=== PATIENT | male | born 1940 | race African-American/Black ===

== ENCOUNTER → 2018-03-14 | Outpatient (CLI) | payer MEDICARE ==
--- NOTE | 2018-03-14 09:02 | RADIOLOGY REPORT (SQ) ---
EXAM DESCRIPTION: TIBIA FIBULA LEFT COMPLETED DATE/TIME: 03/14/2018 8:49 am REASON FOR STUDY: NON-PRESSURE CHRONIC ULCER OF LEFT CALF W FAT LAYER EXPOSED (L97.222) L97.222 NON -PRESSURE CHRONIC ULCER OF LEFT CALF W FAT LAYER COMPARISON: None. NUMBER OF VIEWS: Two views. TECHNIQUE: Two radiographic images acquired of the left tibia and fibula to include the knee and ank le in at least one projection. LIMITATIONS: None. FINDINGS: MINERALIZATION: Normal. BONES: No acute fracture or dislocation. Degenerative changes at the left knee. Chondrocalcinosis i n the medial and lateral compartments, more so laterally. Calcaneal spurs. SOFT TISSUES: Soft tissue swelling/ injury medial aspect of the left ankle. This finding likely cor relates with the patient's known ulcer. Soft tissue vascular calcifications and calcified phlebolith s, more so in the medial soft tissues of the mid distal left lower extremity. Surgical metallic clip s in the posteromedial soft tissues of the knee. OTHER: No other significant finding. IMPRESSION: 1. No acute osseous findings. 2. Soft tissue swelling/injury medial left ankle, likely correlates with patient's known ulcer. 3. Additional findings as above. TECHNICAL DOCUMENTATION: JOB ID: [id number] [employer] All Rights Reserved Reading location - IP/workstation name: [email or web address]
--- NOTE | 2018-03-14 12:21 | XCELERA REPORT ---
[address] [address] Lower Extremity Venous Evaluation Procedure: A bilateral duplex scan of the lower extremity veins was performed. The evaluation included responses to compression and other maneuvers with patient in the supine and standing positions to assess venous insufficiency. Right Sided Venous Evaluation Deep venous system evaluation shows patent veins with partial obstruction. visible echogenic content in the Popliteal vein,normal sized , no significant reflux identified. Saphena Femoral junction: no reflux. Femoral vein reflux: no reflux. Greater Saphenous vein, Proximal thigh: reflux: no reflux. Greater Saphenous vein, Distal thigh: reflux: no reflux. Greater Saphenous vein, Proximal below knee: reflux: no reflux. No significant Perforators identified. Critical Findings The patient left for another appointment, no history of prior vein surgery of anticoagulants. Will continue attempts at getting in touch with ordering providers, primary provider for appropriate management. Interpretation Summary Positive for Chronic venous thrombus in both Popliteal veins. No significant deep or superficial reflux. Name: MIKEY ANDREWS Age: 77 yrs Gender: Male : 1940 Patient Status: Outpatient Patient Location: Study Date: 03/14/2018 09:56 AM Reason For Study: ULCER Ordering Physician: FRED MCMILLAN Performed By: Handy Urban : FRED MCMILLAN > Ac Bates
--- NOTE | 2018-03-14 12:30 | XCELERA REPORT ---
[address] [address] Lower Extremity Arterial Evaluation Name: MIKEY ANDREWS Age: 77 yrs Gender: Male : 1940 Patient Status: Outpatient Patient Location: Study Date: 03/14/2018 09:29 AM Procedure: A color flow and duplex scan of the lower extremity arteries was performed bilaterally with velocity and waveform anaylsis. Reason For Study: ULCER Ordering Physician: FRED MCMILLAN Performed By: Handy Urban Measurements and Calculations Right Left IC DESIGN MANAGER PSV 66.3 65.9 cm/sec Prox PFA PSV -99.3 -45.6 cm/sec Prox Pop A PSV 39.5 66.3 cm/sec Dist RANJIT PSV 68.4 84.5 cm/sec Mid SUB ACUTE CARE NURSE PSV -50.5 cm/sec Dist SUB ACUTE CARE NURSE PSV 52.8 cm/sec Selvin Pedis PSV -91.0 -85.4 cm/sec Right Side Arterial Evaluation Normal velocity and triphasic waveforms noted from the Common Femoral artery to the infrageniculate vessels. 0 % stenosis. Ankle Brachial index was not done, due to finding of bilateral Popliteal DVT. Left Side Arterial Evaluation Normal velocity and triphasic waveforms noted from the Common Femoral artery to the infrageniculate vessels. 0 % stenosis. Ankle Brachial index was not done, due to finding of bilateral Popliteal DVT. Interpretation Summary No hemodynamically significant lesions in the bilateral lower extremities, on duplex imaging, at rest. : FRED MCMILLAN > Ac Bates
== END ==
LOC: SP 08:20
PROVIDERS: ATTEND Nurse Practitioner
DX: L97.222 Non-pressure chronic ulcer of left calf with fat layer exposed (principal)
CPT/HCPCS: 93925; 93970

== ENCOUNTER → 2018-03-14 | Outpatient (CLI) | payer MEDICARE ==
[2018-03-14 09:06] LABS: ABSOLUTE BASOPHILS # (AUTO) 0.1 10^3/uL (0.0-0.2); ABSOLUTE EOSINOPHILS # (AUTO) 0.1 10^3/uL (0.0-0.6); ABSOLUTE LYMPHOCYTES (AUTO) 0.6 10^3/uL (0.5-4.7); ABSOLUTE MONOCYTES (AUTO) 0.4 10^3/uL (0.1-1.4); ABSOLUTE NEUT (AUTO) 3.2 10^3/uL (1.7-8.2); BASOPHILS % (AUTO) 1.1 % (0-2); EOSINOPHILS % (AUTO) 3.1 % (0-6); HEMATOCRIT 37.6 % (37.9-51.0); HEMOGLOBIN 12.4 g/dL (13.5-17.0); LYMPHOCYTES % (AUTO) 13.2 % (13-45); MEAN CORPUSCULAR HGB CONC 32.9 g/dL (32.0-36.0); MEAN CORPUSCULAR VOLUME 79 fl (80-97); MONOCYTES % (AUTO) 8.6 % (3-13); PLATELET COUNT 152 10^3/uL (150-450); RED BLOOD COUNT 4.76 10^6/uL (4.35-5.55); RED CELL DISTRIBUTION WIDTH 16.8 % (11.5-14.0); TOTAL CELLS COUNTED % (AUTO) 100 %; WHITE BLOOD COUNT 4.4 10^3/uL (4.0-10.5)
[2018-03-14 09:38] LABS: ERYTHROCYTE SEDIMENTATION RATE 47 mm/hr (0-20)
[2018-03-14 09:39] LABS: ALANINE AMINOTRANSFERASE 31 U/L (21-72); ALBUMIN 4.3 g/dL (3.5-5.0); ALKALINE PHOSPHATASE 200 U/L (38-126); ANION GAP 15 (5-19); ASPARTATE AMINO TRANSFERASE 45 U/L (17-59); BILIRUBIN,DIRECT 0.6 mg/dL (0.0-0.4); BILIRUBIN,TOTAL 1.4 mg/dL (0.2-1.3); BLOOD UREA NITROGEN 17 mg/dL (7-20); C-REACTIVE PROTEIN 6.6 mg/L (<10.0); CARBON DIOXIDE 25 mmol/L (22-30); CHLORIDE 101 mmol/L (98-107); GLUCOSE 186 mg/dL (75-110); POTASSIUM 4.6 mmol/L (3.6-5.0); SODIUM 140.6 mmol/L (137-145); TOTAL PROTEIN 8.2 g/dL (6.3-8.2)
== END ==
LOC: LAB 08:48
PROVIDERS: ATTEND Nurse Practitioner
DX: E11.621 Type 2 diabetes mellitus with foot ulcer (principal); L97.222 Non-pressure chronic ulcer of left calf with fat layer exposed
CPT/HCPCS: 36415; 80053; 83036; 85025; 85652; 86140

== ENCOUNTER → 2018-05-31 | Outpatient (CLI) | payer MEDICARE ==
--- NOTE | 2018-05-31 10:46 | RADIOLOGY REPORT (SQ) ---
EXAM DESCRIPTION: VENOUS BILATERAL LOWER COMPLETED DATE/TIME: 05/31/2018 9:05 am REASON FOR STUDY: ULCER L97.222 NON-PRESSURE CHRONIC ULCER OF LEFT CALF W FAT LAYER COMPARISON: 03/14/2018 TECHNIQUE: Dynamic and static crespo scale and color images acquired of both lower extremity venous sy stems. Selected spectral images acquired with additional compression and augmentation maneuvers. Imag es stored on PACS. LIMITATIONS: None. FINDINGS: RIGHT LEG COMMON FEMORAL AND FEMORAL: Normal phasicity, compression and augmentation. No visualized echogenic m aterial on crespo scale. No defects on color images. POPLITEAL: Popliteal vein demonstrates partial compression and nonocclusive filling defect compatible with known chronic clot. CALF VESSELS: Normal compression and augmentation. No visualized echogenic material on crespo scale. No defects on color image. GSV AND SSV: Greater saphenous vein demonstrates normal compression and no evidence of luminal fillin g defect. Small saphenous vein demonstrates filling defect and partial compression compatible with k nown chronic clot. ANY DEEP VENOUS INSUFFICIENCY: Not evaluated. ANY EVIDENCE OF POPLITEAL CYST: No. OTHER: No other significant finding. LEFT LEG COMMON FEMORAL AND FEMORAL: Normal phasicity, compression and augmentation of the common femoral vein and saphenous femoral junction. There is partial nonocclusive filling defect within the femoral vei n compatible with known chronic clot. POPLITEAL: Popliteal vein demonstrates partial compression and nonocclusive filling defect compatible clot. CALF VESSELS: Normal compression and augmentation. No visualized echogenic material on crespo scale. No defects on color images. GSV AND SSV: Greater saphenous vein demonstrates normal compression. No evidence of luminal filling defect. Small saphenous vein demonstrates partial compression and filling defect compatible with chr onic clot. ANY DEEP VENOUS INSUFFICIENCY: Not evaluated. ANY EVIDENCE POPLITEAL CYST: No. OTHER: No other significant finding. IMPRESSION: Right: Persistent chronic clot within the popliteal and small saphenous veins. No evid ence of new clot burden. Left: Chronic appearing nonocclusive thrombus involving the mid femoral vein, popliteal and small sa phenous veins. Mid femoral vein nonocclusive clot not previously identified on prior exam. TECHNICAL DOCUMENTATION: JOB ID: [id number] [employer]- All Rights Reserved Reading location - IP/workstation name: [email or web address]
== END ==
LOC: SP 07:39
PROVIDERS: ATTEND Surgery
DX: L97.222 Non-pressure chronic ulcer of left calf with fat layer exposed (principal)
CPT/HCPCS: 93970

== ENCOUNTER → 2018-06-07 | Outpatient (CLI) | payer MEDICARE ==
[2018-06-07 09:13] LABS: ABSOLUTE EOSINOPHILS # (AUTO) 0.1 10^3/uL (0.0-0.6); ABSOLUTE LYMPHOCYTES (AUTO) 0.6 10^3/uL (0.5-4.7); ABSOLUTE MONOCYTES (AUTO) 0.4 10^3/uL (0.1-1.4); ABSOLUTE NEUT (AUTO) 3.1 10^3/uL (1.7-8.2); BASOPHILS % (AUTO) 0.7 % (0-2); HEMATOCRIT 37.1 % (37.9-51.0); HEMOGLOBIN 12.2 g/dL (13.5-17.0); LYMPHOCYTES % (AUTO) 14.8 % (13-45); MEAN CORPUSCULAR HEMOGLOBIN 26.1 pg (27.0-33.4); MEAN CORPUSCULAR HGB CONC 32.8 g/dL (32.0-36.0); MEAN CORPUSCULAR VOLUME 80 fl (80-97); PLATELET COUNT 118 10^3/uL (150-450); RED BLOOD COUNT 4.67 10^6/uL (4.35-5.55); RED CELL DISTRIBUTION WIDTH 17.6 % (11.5-14.0); SEGMENTED NEUTROPHILS % (AUTO) 71.5 % (42-78); TOTAL CELLS COUNTED % (AUTO) 100 %; WHITE BLOOD COUNT 4.3 10^3/uL (4.0-10.5)
[2018-06-07 09:34] LABS: ALANINE AMINOTRANSFERASE 34 U/L (21-72); ALBUMIN 4.2 g/dL (3.5-5.0); ALKALINE PHOSPHATASE 166 U/L (38-126); ANION GAP 9 (5-19); ASPARTATE AMINO TRANSFERASE 32 U/L (17-59); BILIRUBIN,DIRECT 0.3 mg/dL (0.0-0.4); BLOOD UREA NITROGEN 19 mg/dL (7-20); C-REACTIVE PROTEIN 7.5 mg/L (<10.0); CALCIUM 9.8 mg/dL (8.4-10.2); CARBON DIOXIDE 28 mmol/L (22-30); CHLORIDE 106 mmol/L (98-107); GLUCOSE 116 mg/dL (75-110); POTASSIUM 4.1 mmol/L (3.6-5.0); SODIUM 142.5 mmol/L (137-145); TOTAL PROTEIN 7.5 g/dL (6.3-8.2)
[2018-06-07 09:58] LABS: ERYTHROCYTE SEDIMENTATION RATE 42 mm/hr (0-20)
--- NOTE | 2018-06-07 10:45 | RADIOLOGY REPORT (SQ) ---
EXAM DESCRIPTION: ANKLE LEFT COMPLETE COMPLETED DATE/TIME: 06/07/2018 9:35 am REASON FOR STUDY: NON-PRS CHRONIC ULCER OTH PRT L LOW LEG W FAT LAYER EXPOSED L97.522 NON-PRS CHRON IC ULCER OTH PRT LEFT FOOT W FAT LAYER L97.322 NON-PRESSURE CHRONIC ULCER OF LEFT ANKLE W FAT LAYER L97.822 NON-PRS CHRONIC ULCER OTH PRT L LOW LEG W FAT LAYER COMPARISON: 03/14/2018. NUMBER OF VIEWS: Three views. TECHNIQUE: AP, lateral, and oblique radiographic images acquired of the left ankle. LIMITATIONS: None. FINDINGS: MINERALIZATION: Normal. BONES: Plantar calcaneal bone spur. Degenerative change talotibial joint. Vascular soft tissue calc ifications again noted. Calcified phleboliths again noted. Degenerative change talonavicular joint. JOINTS: No effusions. SOFT TISSUES: Soft tissue swelling medial left ankle. IMPRESSION: No acute fracture identified. Plantar calcaneal bone spur. TECHNICAL DOCUMENTATION: JOB ID: [id number] SC-[id number] 2010 [employer]- All Rights Reserved Reading location - IP/workstation name: [email or web address]
--- NOTE | 2018-06-07 10:49 | RADIOLOGY REPORT (SQ) ---
EXAM DESCRIPTION: TIBIA FIBULA LEFT COMPLETED DATE/TIME: 06/07/2018 9:35 am REASON FOR STUDY: NON-PRS CHRONIC ULCER OTH PRT L LOW LEG W FAT LAYER EXPOSED L97.522 NON-PRS CHRON IC ULCER OTH PRT LEFT FOOT W FAT LAYER L97.322 NON-PRESSURE CHRONIC ULCER OF LEFT ANKLE W FAT LAYER L97.822 NON-PRS CHRONIC ULCER OTH PRT L LOW LEG W FAT LAYER COMPARISON: 03/14/2018. NUMBER OF VIEWS: Two views. TECHNIQUE: Two radiographic images acquired of the left tibia and fibula to include the knee and ank le in at least one projection. LIMITATIONS: None. FINDINGS: MINERALIZATION: Normal. BONES: Tricompartment degenerative arthritis of the left knee. Narrowing of medial knee joint. Surg ical clips medial posterior left knee. Plantar calcaneal bone spur. Degenerative change talonavicul ar joint. SOFT TISSUES: Vascular calcification. Calcified phleboliths. Chondrocalcinosis. Soft tissue swelli ng medial to the medial malleolus. OTHER: No other significant finding. IMPRESSION: Degenerative arthritis of left knee. TECHNICAL DOCUMENTATION: JOB ID: [id number] SC-[id number] 2010 [employer]- All Rights Reserved Reading location - IP/workstation name: [email or web address]
== END ==
LOC: WC 08:20
PROVIDERS: ATTEND Surgery
DX: L97.522 Non-pressure chronic ulcer of other part of left foot with fat layer exposed (principal); L97.322 Non-pressure chronic ulcer of left ankle with fat layer exposed; L97.822 Non-pressure chronic ulcer of other part of left lower leg with fat layer exposed; M17.12 Unilateral primary osteoarthritis, left knee; M77.32 Calcaneal spur, left foot; M19.072 Primary osteoarthritis, left ankle and foot
CPT/HCPCS: 36415; 80053; 85025; 85652; 86140

== ENCOUNTER → 2018-08-03 | Outpatient (CLI) | payer MEDICARE ==
[2018-08-03 09:59] LABS: ABSOLUTE EOSINOPHILS # (AUTO) 0.1 10^3/uL (0.0-0.6); ABSOLUTE LYMPHOCYTES (AUTO) 0.7 10^3/uL (0.5-4.7); ABSOLUTE MONOCYTES (AUTO) 0.5 10^3/uL (0.1-1.4); ABSOLUTE NEUT (AUTO) 2.4 10^3/uL (1.7-8.2); EOSINOPHILS % (AUTO) 3.8 % (0-6); HEMATOCRIT 37.9 % (37.9-51.0); HEMOGLOBIN 12.5 g/dL (13.5-17.0); LYMPHOCYTES % (AUTO) 19.7 % (13-45); MEAN CORPUSCULAR VOLUME 82 fl (80-97); PLATELET COUNT 127 10^3/uL (150-450); RED BLOOD COUNT 4.63 10^6/uL (4.35-5.55); RED CELL DISTRIBUTION WIDTH 15.7 % (11.5-14.0); SEGMENTED NEUTROPHILS % (AUTO) 63.5 % (42-78); TOTAL CELLS COUNTED % (AUTO) 100 %; WHITE BLOOD COUNT 3.8 10^3/uL (4.0-10.5)
[2018-08-03 10:20] LABS: ALANINE AMINOTRANSFERASE 35 U/L (21-72); ALBUMIN 4.2 g/dL (3.5-5.0); ALKALINE PHOSPHATASE 150 U/L (38-126); ANION GAP 9 (5-19); ASPARTATE AMINO TRANSFERASE 30 U/L (17-59); BILIRUBIN,DIRECT 0.3 mg/dL (0.0-0.4); BILIRUBIN,TOTAL 0.8 mg/dL (0.2-1.3); BLOOD UREA NITROGEN 17 mg/dL (7-20); CALCIUM 10.1 mg/dL (8.4-10.2); CARBON DIOXIDE 28 mmol/L (22-30); CHLORIDE 102 mmol/L (98-107); GLUCOSE 156 mg/dL (75-110); POTASSIUM 4.7 mmol/L (3.6-5.0); SODIUM 139.4 mmol/L (137-145); TOTAL PROTEIN 7.9 g/dL (6.3-8.2)
[2018-08-03 10:23] LABS: C-REACTIVE PROTEIN < 5.0 mg/L (<10.0)
[2018-08-03 10:42] LABS: ERYTHROCYTE SEDIMENTATION RATE 45 mm/hr (0-20)
--- NOTE | 2018-08-03 10:49 | RADIOLOGY REPORT (SQ) ---
EXAM DESCRIPTION: TIBIA FIBULA LEFT COMPLETED DATE/TIME: 08/03/2018 9:42 am REASON FOR STUDY: NON-PRESSURE CHRONIC ULCER OF LEFT ANKLE W FAT LAYER EXPOSED L97.322 NON-PRESSURE CHRONIC ULCER OF LEFT ANKLE W FAT LAYER I87.2 VENOUS INSUFFICIENCY (CHRONIC) (PERIPHERAL) COMPARISON: 03/14/2018, 06/07/2018 NUMBER OF VIEWS: Two views. TECHNIQUE: Two radiographic images acquired of the left tibia and fibula to include the knee and ank le in at least one projection. LIMITATIONS: None. FINDINGS: MINERALIZATION: Normal. BONES: Patient has a chronic soft tissue ulcer over the medial malleolus. There is underlying perios teal new bone along the medial distal tibial metaphysis and medial malleolus similar compared to the prior studies, likely from old healed osteomyelitis. On today's study, no aggressive bony demineralization along the medial malleolus is present worrisome for active osteomyelitis. No acute fracture or malalignment at the ankle or knee joint. Old healed distal fibular spiral fract ure. Remainder of the tibia and fibula are intact. SOFT TISSUES: There is a medial soft tissue ulcer at the ankle. Dystrophic calcifications in the sub cutaneous fat over the medial left lower leg. Arterial vascular surgery clips are present in the med ial knee soft tissues. Knee joint chondrocalcinosis is present OTHER: No other significant finding. IMPRESSION: Chronic bony remodeling along the medial malleolus with overlying soft tissue ulcer. TECHNICAL DOCUMENTATION: JOB ID: [id number] [employer]- All Rights Reserved Reading location - IP/workstation name: [email or web address]
== END ==
LOC: WC 09:15
PROVIDERS: ATTEND Surgery
DX: L97.322 Non-pressure chronic ulcer of left ankle with fat layer exposed (principal); I87.2 Venous insufficiency (chronic) (peripheral)
CPT/HCPCS: 36415; 80053; 85025; 85652; 86140

== ENCOUNTER 2018-09-13 08:19 | Day surgery (SDC) | payer MEDICARE ==
[2018-09-06 09:54] LABS: HEMATOCRIT 38.5 % (37.9-51.0); HEMOGLOBIN 12.4 g/dL (13.5-17.0); MEAN CORPUSCULAR HEMOGLOBIN 26.3 pg (27.0-33.4); MEAN CORPUSCULAR HGB CONC 32.1 g/dL (32.0-36.0); MEAN CORPUSCULAR VOLUME 82 fl (80-97); PLATELET COUNT 124 10^3/uL (150-450); RED CELL DISTRIBUTION WIDTH 15.5 % (11.5-14.0); WHITE BLOOD COUNT 3.6 10^3/uL (4.0-10.5)
--- NOTE | 2018-09-06 10:05 | RADIOLOGY REPORT (SQ) ---
EXAM DESCRIPTION: CHEST PA/LATERAL COMPLETED DATE/TIME: 09/06/2018 9:27 am REASON FOR STUDY: PRE-OP COMPARISON: None. EXAM PARAMETERS: NUMBER OF VIEWS: two views TECHNIQUE: Digital Frontal and Lateral radiographic views of the chest acquired. RADIATION DOSE: NA LIMITATIONS: none FINDINGS: LUNGS AND PLEURA: Mild pleuroparenchymal changes at the right lung base, may be on a producer jeet basis. Calcified granuloma at the right lung base. No acute pulmonary consolidation. No pneumo thorax. MEDIASTINUM AND HILAR STRUCTURES: No masses or contour abnormalities. HEART AND VASCULAR STRUCTURES: Cardiomegaly. No evidence for failure. BONES: No acute findings. HARDWARE: Prior anterior median sternotomy. OTHER: No other significant finding. IMPRESSION: 1. Mild pleuroparenchymal changes at the right lung base, may be related to chronic charly nges. Calcified granuloma. No acute pulmonary consolidation. 2. Cardiomegaly. No evidence for failure. TECHNICAL DOCUMENTATION: JOB ID: [id number] [employer]- All Rights Reserved Reading location - IP/workstation name: [email or web address]
[2018-09-06 10:25] LABS: ALANINE AMINOTRANSFERASE 30 U/L (21-72); ALBUMIN 4.1 g/dL (3.5-5.0); ALKALINE PHOSPHATASE 140 U/L (38-126); ANION GAP 12 (5-19); ASPARTATE AMINO TRANSFERASE 34 U/L (17-59); BILIRUBIN,DIRECT 0.4 mg/dL (0.0-0.4); BILIRUBIN,TOTAL 0.9 mg/dL (0.2-1.3); BLOOD UREA NITROGEN 18 mg/dL (7-20); CALCIUM 9.9 mg/dL (8.4-10.2); CARBON DIOXIDE 24 mmol/L (22-30); CHLORIDE 105 mmol/L (98-107); GLUCOSE 147 mg/dL (75-110); POTASSIUM 4.4 mmol/L (3.6-5.0); SODIUM 140.5 mmol/L (137-145); TOTAL PROTEIN 7.7 g/dL (6.3-8.2)
--- NOTE | 2018-09-06 11:02 | EKG REPORT ---
SEVERITY:- ABNORMAL ECG - ATRIAL FLUTTER, A-RATE 211 INFERIOR INFARCT, OLD ANTERIOR INFARCT, OLD BORDERLINE PROLONGED QT INTERVAL : Confirmed by: Ag Gates 06-Sep-2018 11:01:33
[~2018-09-13 08:19] MED LIST: CEFAZOLIN 1 GM/D5W RTU 1 GM/50 ML RTUPB IV PRN; RINGERS SOLUTION,LACTATED 1,000 ML IV PRN
[2018-09-13] MEDS ORDERED: CEFAZOLIN 1 GM/D5W RTU 1 GM/50 ML RTUPB IV ONE (10:06)
[2018-09-13] MEDS ORDERED: FAMOTIDINE INJ/PF 20 MG/2 ML SDV IV ONE (10:29)
[2018-09-13] MEDS ORDERED: METOCLOPRAMIDE HCL INJ/PF 10 MG/2 ML SDV ONE (10:33)
[2018-09-13] MEDS ORDERED: BUPIVACAINE HCL 0.25 % INJ/PF (2.5 MG/1 ML) 30 ML VIAL ONE (11:00)
[2018-09-13] MEDS ORDERED: LIDOCAINE 0.5% INJ-PF (5 MG/ML) 50 ML SDV ONE (11:00)
[2018-09-13] MEDS ORDERED: THROMBIN (BOVINE) TOPICAL 5000 UNIT VIAL ONE (11:00)
[2018-09-13] MEDS ORDERED: BACITRACIN INJ 50,000 UNIT VIAL ONE (11:01)
[2018-09-13] MEDS ORDERED: KETAMINE HCL INJ 500 MG/10 ML VIAL ONE (12:40)
[2018-09-13] MEDS ORDERED: LIDOCAINE 2% INJ-PF (20 MG/ML) 10 ML AMPUL ONE (12:40)
[2018-09-13] MEDS ORDERED: MIDAZOLAM 2 MG/2 ML INJ ONE (12:41)
[2018-09-13] MEDS ORDERED: PROPOFOL INJ 200 MG/20 ML VIAL IV ONE (12:41)
[2018-09-13] MEDS ORDERED: ONDANSETRON HCL INJ/PF 4 MG/2 ML SDV ONE (12:41)
[2018-09-13] MEDS ORDERED: FENTANYL CITRATE INJ/PF 100 MCG/2 ML AMPUL ONE (12:41)
[2018-09-13] MEDS ORDERED: MORPHINE SULFATE 10 MG/ML INJ IV PRN (13:46)
[2018-09-13] MEDS ORDERED: FENTANYL CITRATE INJ/PF 100 MCG/2 ML AMPUL IV PRN ×3 (13:46)
[2018-09-13] MEDS ORDERED: ONDANSETRON HCL INJ/PF 4 MG/2 ML SDV IV PRN (13:46)
[2018-09-13] MEDS ORDERED: PROMETHAZINE HCL INJ 25 MG/1 ML VIAL IV PRN ×2 (13:46)
[2018-09-13] MEDS ORDERED: OXYCODONE-ACETAMINOPHEN 5-325 MG TABLET PO PRN ×2 (13:46)
[2018-09-13] MEDS ORDERED: DIPHENHYDRAMINE HCL 50 MG/ML VIAL IV PRN (13:46)
[2018-09-13] MEDS ORDERED: MEPERIDINE HCL/PF INJ 25 MG/1 ML DISP.SYRIN IV PRN (13:46)
--- NOTE | 2018-09-13 14:35 | Discharge Summary ---
Discharge Summary (SDC) - Discharge Final Diagnosis: Stasis ulcer left leg chronic. Date of Surgery: 09/13/18 Discharge Date: 09/13/18 Condition: Good Treatment or Instructions: Discharge home [after recovery per ASU criteria]. Diet , as tolerated, when fully awake advance as tolerated. Activities within moderation encouraged. Follow up in wound clinic on Wednesday of this week. Call for appointment. Leave wounds [covered], [keep clean and dry, until office visit in 1 week]. Hold of on school/work [until evaluation in office]. Important to avoid standing or sitting for any length of time. Walking or sitting with the leg elevated is fine. Meds per med rec. Percocet. May shower [in 48 hrs], [try to keep operated area as dry as possible]. Referrals: VICTORINO KERN PA [Primary Care Provider] - Discharge Diet: As Tolerated Respiratory Treatments at Home: Deep Breathing/Coughing Discharge Activity: Activity As Tolerated Report the Following to Your Physician Immediately: Unusual Bleeding
--- NOTE | 2018-09-13 14:38 | Operative Report ---
Operative Report DATE OF SURGERY: 09/13/18 PREOPERATIVE DIAGNOSIS: Stasis ulcer left leg chronic. POSTOPERATIVE DIAGNOSIS: Stasis ulcer left leg chronic. OPERATION: Full-thickness skin graft from abdomen to left leg. SURGEON: ELEAZAR GONZALEZ OIM ARCHITECT: None. ANESTHESIA: LMAC TISSUE REMOVED OR ALTERED: Skin graft. COMPLICATIONS: None. ESTIMATED BLOOD LOSS: 5 mL. INTRAOPERATIVE FINDINGS: But approximately 1 x 1 cm chronic ulcer of the left leg. Satisfactory coverage with full-thickness skin graft. PROCEDURE: PROCEDURE: The [left leg and abdomen] were prepared with [Betadine] and draped out with sterile linen. After the"universal time-out", in which it was confirmed that the patient [did receive antibiotic], the procedure commenced. The patient was appropriately anesthetized. Local anesthesia infiltrated in the abdominal donor site and then in [the left leg wound site]. [The leg wound was debrided] of non viable tissue , excess granulation tissue using[a 10 blade scalpel] with removal of loose debris, as well. The wound was irrigated with [sterile saline] . A saline moistened gauze was now placed on the recipient site. After changing gloves the abdomen was now approached. First the skin which had been painted with Betadine, was cleaned with saline solution so that no Betadine remained. An oval incision was sketched transversely in the mid lower abdomen. This was centered on the midline and [measured 1.5 x 1.5 cm, the incision now made through the epidermis and dermis. [Working from the right side] the skin donor was excised with a 15 blade blade scalpel. This was done in the deep dermal layer, the donor was now put aside in a saline moistened gauze. Underlying fatty tissue, at the donor site, was now excised using cautery in order to facilitate closure. The donor site was now closed after obtaining hemostasis. Closure was done in layers, the deeper layers closed with interrupted 3-0 PDS and the skin closed with a continuous subcuticular suture of 4-0 Monocryl, reinforced with Steri-Strips over benzoin . The donor was now defatted using iris scissors. It was thinned out somewhat. Cleaned with saline and then placed on the recipient site. Several incisions were made in the donor using a 15 blade scalpel. The donor was now sutured in place using 4 sutures of 4-0 Monocryl placed in the 4 quadrants. Each was left long for subsequent tying. Interval interrupted sutures of 3-0 PDS were utilized in order to anchor the graft. Once this was done satisfactorily an Adaptic gauze was placed on the graft followed by a gauze lightly moistened with saline the 4 sutures previously left long were now tied over this so as to secure nice anchoring and pressure on the graft. Urine is boot now placed.
[2018-09-13 17:16] VITALS: BP 135/90
--- NOTE | 2018-09-13 17:42 | EKG REPORT ---
SEVERITY:- ABNORMAL ECG - A-FLUTTER W/ PREDOM 3:1 AV BLOCK, A-RATE 211 PROBABLE INFERIOR INFARCT, AGE INDETERMINATE ABNRM R PROG, CONSIDER ASMI OR LEAD PLACEMENT BORDERLINE PROLONGED QT INTERVAL : Confirmed by: Snehal Maria MD 13-Sep-2018 17:41:17
== END 2018-09-13 16:25 | disposition home or self-care (01) ==
LOC: OROUT 08:19
PROVIDERS: ATTEND Surgery
DX: I87.312 Chronic venous hypertension (idiopathic) with ulcer of left lower extremity (principal); Z79.82 Long term (current) use of aspirin; Z79.84 Long term (current) use of oral hypoglycemic drugs; E11.9 Type 2 diabetes mellitus without complications; I10 Essential (primary) hypertension; E78.00 Pure hypercholesterolemia, unspecified; D64.9 Anemia, unspecified; F17.210 Nicotine dependence, cigarettes, uncomplicated; Z79.899 Other long term (current) drug therapy; Z01.818 Encounter for other preprocedural examination
CPT/HCPCS: 93005 ×2; 36415; 82962; 85027; 80053; 71046; 93010 ×2; 15220; J2250; J3490 ×4; J0690; J3010; J2765; J2405; J2704; S0028; 400

== ENCOUNTER → 2018-09-28 | Outpatient (CLI) | payer MEDICARE ==
[2018-09-28 09:52] LABS: ABSOLUTE EOSINOPHILS # (AUTO) 0.1 10^3/uL (0.0-0.6); ABSOLUTE LYMPHOCYTES (AUTO) 0.7 10^3/uL (0.5-4.7); ABSOLUTE MONOCYTES (AUTO) 0.4 10^3/uL (0.1-1.4); ABSOLUTE NEUT (AUTO) 2.5 10^3/uL (1.7-8.2); BASOPHILS % (AUTO) 1.1 % (0-2); EOSINOPHILS % (AUTO) 3.8 % (0-6); HEMATOCRIT 40.1 % (37.9-51.0); HEMOGLOBIN 12.8 g/dL (13.5-17.0); LYMPHOCYTES % (AUTO) 19.4 % (13-45); MEAN CORPUSCULAR HEMOGLOBIN 26.5 pg (27.0-33.4); MEAN CORPUSCULAR VOLUME 83 fl (80-97); MONOCYTES % (AUTO) 9.4 % (3-13); PLATELET COUNT 128 10^3/uL (150-450); RED BLOOD COUNT 4.83 10^6/uL (4.35-5.55); RED CELL DISTRIBUTION WIDTH 15.7 % (11.5-14.0); SEGMENTED NEUTROPHILS % (AUTO) 66.3 % (42-78); TOTAL CELLS COUNTED % (AUTO) 100 %; WHITE BLOOD COUNT 3.8 10^3/uL (4.0-10.5)
[2018-09-28 10:23] LABS: ALANINE AMINOTRANSFERASE 22 U/L (21-72); ALBUMIN 4.2 g/dL (3.5-5.0); ALKALINE PHOSPHATASE 141 U/L (38-126); ANION GAP 12 (5-19); ASPARTATE AMINO TRANSFERASE 30 U/L (17-59); BILIRUBIN,DIRECT 0.4 mg/dL (0.0-0.4); BILIRUBIN,TOTAL 0.9 mg/dL (0.2-1.3); BLOOD UREA NITROGEN 17 mg/dL (7-20); C-REACTIVE PROTEIN 5.6 mg/L (<10.0); CALCIUM 9.9 mg/dL (8.4-10.2); CARBON DIOXIDE 27 mmol/L (22-30); CHLORIDE 103 mmol/L (98-107); GLUCOSE 151 mg/dL (75-110); POTASSIUM 4.5 mmol/L (3.6-5.0); SODIUM 141.6 mmol/L (137-145); TOTAL PROTEIN 7.9 g/dL (6.3-8.2)
[2018-09-28 10:30] LABS: ERYTHROCYTE SEDIMENTATION RATE 35 mm/hr (0-20)
== END ==
LOC: WC 09:20
PROVIDERS: ATTEND Nurse Practitioner Family
DX: E11.621 Type 2 diabetes mellitus with foot ulcer (principal); L97.822 Non-pressure chronic ulcer of other part of left lower leg with fat layer exposed
CPT/HCPCS: 36415; 80053; 83036; 85025; 85652; 86140

== ENCOUNTER → 2019-03-29 | Outpatient (CLI) | payer MEDICARE ==
[2019-03-29 09:37] LABS: ABSOLUTE EOSINOPHILS # (AUTO) 0.1 10^3/uL (0.0-0.6); ABSOLUTE LYMPHOCYTES (AUTO) 0.7 10^3/uL (0.5-4.7); ABSOLUTE MONOCYTES (AUTO) 0.5 10^3/uL (0.1-1.4); ABSOLUTE NEUT (AUTO) 4.2 10^3/uL (1.7-8.2); BASOPHILS % (AUTO) 0.6 % (0-2); HEMATOCRIT 39.6 % (37.9-51.0); HEMOGLOBIN 13.2 g/dL (13.5-17.0); LYMPHOCYTES % (AUTO) 12.9 % (13-45); MEAN CORPUSCULAR HEMOGLOBIN 27.8 pg (27.0-33.4); MEAN CORPUSCULAR HGB CONC 33.4 g/dL (32.0-36.0); MEAN CORPUSCULAR VOLUME 83 fl (80-97); MONOCYTES % (AUTO) 8.8 % (3-13); PLATELET COUNT 135 10^3/uL (150-450); RED BLOOD COUNT 4.75 10^6/uL (4.35-5.55); RED CELL DISTRIBUTION WIDTH 14.8 % (11.5-14.0); SEGMENTED NEUTROPHILS % (AUTO) 75.7 % (42-78); TOTAL CELLS COUNTED % (AUTO) 100 %; WHITE BLOOD COUNT 5.5 10^3/uL (4.0-10.5)
[2019-03-29 10:05] LABS: ALBUMIN 4.4 g/dL (3.5-5.0); ALKALINE PHOSPHATASE 123 U/L (38-126); ANION GAP 11 (5-19); ASPARTATE AMINO TRANSFERASE 32 U/L (17-59); BILIRUBIN,DIRECT 0.1 mg/dL (0.0-0.4); BILIRUBIN,TOTAL 0.6 mg/dL (0.2-1.3); BLOOD UREA NITROGEN 15 mg/dL (7-20); CALCIUM 10.4 mg/dL (8.4-10.2); CARBON DIOXIDE 26 mmol/L (22-30); CHLORIDE 104 mmol/L (98-107); GLUCOSE 147 mg/dL (75-110); POTASSIUM 4.8 mmol/L (3.6-5.0); TOTAL PROTEIN 8.1 g/dL (6.3-8.2)
[2019-03-29 10:16] LABS: ERYTHROCYTE SEDIMENTATION RATE 49 mm/hr (0-20)
--- NOTE | 2019-03-29 12:24 | RADIOLOGY REPORT (SQ) ---
EXAM DESCRIPTION: TIBIA FIBULA LEFT COMPLETED DATE/TIME: 03/29/2019 9:19 am REASON FOR STUDY: NON-PRS CHRONIC ULCER OTH PRT L LOW LEG W FAT LAYER EXPOSED L97.822 NON-PRS CHRON IC ULCER OTH PRT L LOW LEG W FAT LAYER E11.622 TYPE 2 DIABETES MELLITUS WITH OTHER SKIN ULCER COMPARISON: Left tib fib two views 08/03/2018, 06/07/2018, 03/14/2018 NUMBER OF VIEWS: Two views. TECHNIQUE: Two radiographic images acquired of the left tibia and fibula to include the knee and ank le in at least one projection. LIMITATIONS: None. FINDINGS: MINERALIZATION: Normal. BONES: No acute fracture or dislocation. No worrisome bone lesions. SOFT TISSUES: Vascular surgical clips medial aspect left lower leg. There is diffuse dystrophic subc utaneous calcifications in the lower leg subcutaneous fat. Soft tissue ulcer over the medial malleol us marked with arrows. OTHER: No other significant finding. IMPRESSION: No acute fracture. Extensive subcutaneous fat calcification from fat necrosis. Medial malleolar soft tissue ulcer without underlying aggressive bony demineralization TECHNICAL DOCUMENTATION: JOB ID: [id number]- All Rights Reserved Reading location - IP/workstation name: [email or web address]
[2019-03-29 14:35] LABS: C-REACTIVE PROTEIN < 5.0 mg/L (<10.0)
== END ==
LOC: WC 08:46
PROVIDERS: ATTEND Nurse Practitioner Family
DX: L97.822 Non-pressure chronic ulcer of other part of left lower leg with fat layer exposed (principal); E11.622 Type 2 diabetes mellitus with other skin ulcer
CPT/HCPCS: 36415; 80053; 83036; 85025; 85652; 86140